=== PATIENT | male | born 1945 | race Native Hawaiian/Other Pacific Islander ===

== ENCOUNTER 2018-02-14 09:11 | Outpatient (CLI) | payer OTHER | END 2018-02-14 20:01 | disposition home or self-care (01) | LOC: RAD 09:11 | DX: I49.8 Other specified cardiac arrhythmias (principal); J44.9 Chronic obstructive pulmonary disease, unspecified | CPT/HCPCS: 93005 ==

== ENCOUNTER 2018-07-02 10:32 | Emergency (ER) | payer OTHER ==
[~2018-07-02] VITALS: Ht 180.3 cm; Wt 88.5 kg
[2018-07-02 12:12] VITALS: BP 156/86; TEMP 98.1
== END 2018-07-02 12:17 | disposition home or self-care (01) ==
LOC: ED 10:32
DX: L25.9 Unspecified contact dermatitis, unspecified cause (principal)
CPT/HCPCS: 96372; 99282; J2930

== ENCOUNTER 2020-02-20 09:24 | Outpatient (CLI) | payer OTHER ==
[2020-02-20 10:06] LABS: PLATELET COUNT 262 K/uL (142-355)
[2020-02-20 10:25] LABS: POTASSIUM 3.5 mmol/L (3.6-5.2)
== END 2020-02-20 22:32 | disposition home or self-care (01) ==
LOC: LABW 09:24
PROVIDERS: Internal Medicine
DX: J43.2 Centrilobular emphysema (principal); Z87.891 Personal history of nicotine dependence; E78.2 Mixed hyperlipidemia; M62.81 Muscle weakness (generalized); N40.0 Benign prostatic hyperplasia without lower urinary tract symptoms; Z79.899 Other long term (current) drug therapy
CPT/HCPCS: 36415; 80048; 80061; 80076; 81000; 82550; 84153; 84443; 85027

== ENCOUNTER → 2020-04-18 | Outpatient (CLI) | payer OTHER ==
[2020-04-18 10:31] LABS: PLATELET COUNT 255 K/uL (142-355)
== END ==
LOC: LABW 10:09
PROVIDERS: Dermatology
DX: L81.7 Pigmented purpuric dermatosis (principal); L20.84 Intrinsic (allergic) eczema; Z79.899 Other long term (current) drug therapy
CPT/HCPCS: 36415; 85027

== ENCOUNTER 2021-03-05 11:35 | Outpatient (CLI) | payer OTHER ==
[2021-03-05 11:57] LABS: PLATELET COUNT 247 K/uL (142-355)
[2021-03-05 12:19] LABS: POTASSIUM 3.7 mmol/L (3.6-5.2)
== END 2021-03-05 19:21 | disposition home or self-care (01) ==
LOC: LABW 11:35
PROVIDERS: ATTEND Internal Medicine
DX: E78.2 Mixed hyperlipidemia (principal); M62.81 Muscle weakness (generalized); Z12.5 Encounter for screening for malignant neoplasm of prostate
CPT/HCPCS: 36415; 80048; 80061; 80076; 81000; 82550; 84153; 84443; 85027

== ENCOUNTER 2021-12-17 08:15 | Outpatient (CLI) | payer OTHER ==
[2021-12-17 08:41] LABS: PLATELET COUNT 238 K/uL (142-355)
[2021-12-17 09:11] LABS: POTASSIUM 3.9 mmol/L (3.6-5.2)
== END 2021-12-17 18:55 | disposition home or self-care (01) ==
LOC: LABW 08:15
PROVIDERS: ATTEND Internal Medicine
DX: I10 Essential (primary) hypertension (principal); E78.49 Other hyperlipidemia; N52.8 Other male erectile dysfunction
CPT/HCPCS: 36415; 80053; 80061; 81000; 84153; 84439; 84443; 85027

== ENCOUNTER 2022-07-16 09:59 | Emergency (ER) | payer OTHER ==
[~2022-07-16] VITALS: Ht 180.3 cm; Wt 77.1 kg
[2022-07-16 10:27] LABS: PLATELET COUNT 264 K/uL (142-355)
[2022-07-16 10:36] LABS: POTASSIUM 3.5 mmol/L (3.6-5.2)
[2022-07-16 11:02] LABS: PARTIAL THROMBOPLASTIN TIME 24.7 SECONDS (24.5-33.6)
[2022-07-16 12:48] VITALS: BP 154/79; TEMP 98.2
== END 2022-07-16 12:48 | disposition home or self-care (01) ==
LOC: ED 09:59
PROVIDERS: Emergency Medicine
DX: R07.89 Other chest pain (principal)
CPT/HCPCS: 80053; 84484; 85027; 85610; 85730; 93005; 96374; 99284

== ENCOUNTER 2022-08-20 08:56 | Outpatient (CLI) | payer OTHER ==
[2022-08-20 09:10] LABS: PLATELET COUNT 244 K/uL (142-355)
[2022-08-20 09:37] LABS: POTASSIUM 4.2 mmol/L (3.6-5.2)
== END 2022-08-20 19:12 | disposition home or self-care (01) ==
LOC: LABW 08:56
PROVIDERS: ATTEND Specialist
DX: I20.0 Unstable angina (principal)
CPT/HCPCS: 36415; 80048; 85027

== ENCOUNTER 2022-11-06 11:01 | Outpatient (CLI) | payer OTHER ==
[2022-11-06 11:43] LABS: PLATELET COUNT 256 K/uL (142-355)
[2022-11-06 12:11] LABS: POTASSIUM 4.2 mmol/L (3.6-5.2)
== END 2022-11-06 19:53 | disposition home or self-care (01) ==
LOC: LABW 11:01
PROVIDERS: ATTEND Internal Medicine
DX: I10 Essential (primary) hypertension (principal); F51.01 Primary insomnia
CPT/HCPCS: 36415; 80053; 80061; 81002; 84439; 84443; 85027

== ENCOUNTER 2023-05-06 08:31 | Emergency (ER) | payer OTHER ==
[~2023-05-06] VITALS: Ht 180.3 cm; Wt 77.1 kg
[2023-05-06 08:31] VITALS: BP 124/48; TEMP 98
[2023-05-06 09:05] LABS: PLATELET COUNT 352 K/uL (142-355)
[2023-05-06 09:16] LABS: POTASSIUM 3.8 mmol/L (3.6-5.2)
[2023-05-06 09:17] LABS: PARTIAL THROMBOPLASTIN TIME 34.6 SECONDS (23.9-36.7)
== END 2023-05-06 16:24 | disposition short-term general hospital (02) ==
LOC: ED 08:31
PROVIDERS: Family Medicine
DX: D64.9 Anemia, unspecified (principal); N20.0 Calculus of kidney; F17.210 Nicotine dependence, cigarettes, uncomplicated
CPT/HCPCS: 36415; 36430; 80053; 81002; 82272; 82550; 83605; 83735; 84100; 84484; 85014; 85018; 85027; 85610; 85730; 86850; 86900; 86901; 86922; 93005; 96365; 99285; P9016; Q9963

== ENCOUNTER 2023-05-18 13:47 | Outpatient (CLI) | payer OTHER ==
[2023-05-18 14:17] LABS: PLATELET COUNT 357 K/uL (142-355)
[2023-05-18 14:27] LABS: POTASSIUM 4.3 mmol/L (3.6-5.2)
== END 2023-05-18 19:16 | disposition home or self-care (01) ==
LOC: LAB 13:47
PROVIDERS: ATTEND Internal Medicine
DX: D64.89 Other specified anemias (principal); I10 Essential (primary) hypertension
CPT/HCPCS: 80053; 85027

== ENCOUNTER 2023-06-01 14:56 | Outpatient (CLI) | payer OTHER ==
[2023-06-01 15:21] LABS: PLATELET COUNT 402 K/uL (142-355)
== END 2023-06-01 20:35 | disposition home or self-care (01) ==
LOC: LAB 14:56
PROVIDERS: ATTEND Internal Medicine
DX: D64.89 Other specified anemias (principal)
CPT/HCPCS: 85027

== ENCOUNTER 2023-06-10 12:30 | Outpatient (CLI) | payer OTHER ==
[2023-06-10 12:53] LABS: PLATELET COUNT 295 K/uL (142-355)
== END 2023-06-10 18:59 | disposition home or self-care (01) ==
LOC: LAB 12:30
PROVIDERS: ATTEND Internal Medicine
DX: D64.89 Other specified anemias (principal)
CPT/HCPCS: 85027

== ENCOUNTER 2023-08-10 11:38 | Outpatient (CLI) | payer OTHER | END 2023-08-10 18:55 | disposition home or self-care (01) | LOC: RAD 11:38 | PROVIDERS: ATTEND Internal Medicine | DX: M54.59 Other low back pain (principal); M25.552 Pain in left hip; M25.551 Pain in right hip ==

== ENCOUNTER 2023-08-11 08:33 | Outpatient (CLI) | payer OTHER ==
[2023-08-11 08:53] LABS: PLATELET COUNT 360 K/uL (142-355)
[2023-08-11 09:15] LABS: POTASSIUM 4.1 mmol/L (3.6-5.2)
== END 2023-08-11 19:08 | disposition home or self-care (01) ==
LOC: LABW 08:33
PROVIDERS: ATTEND Internal Medicine
DX: I48.91 Unspecified atrial fibrillation (principal); Z12.5 Encounter for screening for malignant neoplasm of prostate; D64.89 Other specified anemias; I10 Essential (primary) hypertension
CPT/HCPCS: 36415; 80053; 80061; 81002; 84153; 84439; 84443; 85027